=== PATIENT | male | born 1955 | race Caucasian/White ===

== ENCOUNTER 2024-01-12 05:38 | Observation (INO) | payer OTHER, SELFPAY ==
[2024-01-11 22:52] VITALS: BP 113/78; BMI 39.7
[2024-01-11 23:00] VITALS: BP 124/69
[2024-01-11 23:10] LABS: % Basophils 0.9 % (0-2); % Eosinophils 2.1 % (0-6); % Immature Granulocytes 0.4 % (0-0.5); % Lymphocytes 32.9 % (20.5-51.1); % Monocytes 8.9 % (1.7-9.3); % Neutrophils 54.8 % (42.2-75.2); Absolute Basophils 0.1 10^3/uL (0-0.2); Absolute Eosinophils 0.2 10^3/uL (0-0.7); Absolute Monocytes 0.8 10^3/uL (0.1-0.6); Hematocrit 41.9 % (39.0-52.0); Hemoglobin 14.1 g/dL (13.0-18.0); Mean Corp Hgb Conc. 33.7 g/dL (33.0-37.0); Mean Corpuscular Hgb 30.1 pg (27.0-31.0); Mean Corpuscular Volume 89.5 fL (80.0-94.0); Nucleated Red Blood Cells % 0 % (-); Platelet Count 149 10^3/uL (130-400); Red Blood Cell Count 4.68 10^6/uL (4.70-6.10); Red Cell Dist. Width 13.6 % (11.5-14.5); White Blood Cell Count 9.1 10^3/uL (4.8-10.8)
[2024-01-11 23:27] LABS: ALT (SGPT) 20 U/L (0-50); AST (SGOT) 23 U/L (17-59); Albumin 4.6 g/dl (3.5-5.0); Alkaline Phosphatase 52 U/L (38-126); Blood Urea Nitrogen 25 mg/dl (9-20); Calcium 8.9 mg/dl (8.4-10.2); Carbon Dioxide 24 mmol/L (22-30); Chloride 102 mmol/L (98-107); Estimated Creatinine Clearance 79 ml/min; Glucose 171 mg/dl (70-99); Potassium 3.8 mmol/L (3.5-5.1); Sodium 136 mmol/L (135-145); Total Bilirubin 1.6 mg/dl (0.2-1.3); eGFR > 60.00
[2024-01-11 23:36] LABS: Troponin I < 0.012 ng/ml
[2024-01-12] VITALS (18 sets, daily range): BP systolic 96–135; BP diastolic 55–82; PULSE 53–61; BMI 38.7
[2024-01-12] MEDS: NSS 1000 IV (02:52)
--- NOTE | 2024-01-12 02:56 | ED.GENMED ---
History of Present Illness
General
Chief Complaint: Fainting/Passed Out
Source: patient
Exam Limitations: none
Time Seen by Provider: 01/12/24 02:21
History of Present Illness
History of Present Illness:
This is a 68 year old male that comes in by ambulance with c/o syncope. States that he was playing cigar poker and it was around 10 pm when he was going to leave. States that he went to the Desk to sign out and he felt dizzy. States that the next
think he knew he was on the floor. States that he went to get up and he passed out again. States that the life sciences manager called 911 and a police office and EMS came. States that he felt better and they got him up in a chair. States that he was sitting in
the chair and they said that his heart rate started to go down and he passed out again. States that they paced him and patient was also given Atropine. States that he has had a cough and earlier he did feel dizzy. States that he feels good now.
Denies any fever, chills, chest pain, SOB, abd pain, nausea, vomiting, diarrhea, headache, urinary burning.
Past History
Past History
ED Past Medical History: Hypercholesterolemia and Other (Syncope)
ED Past Surgical History: Cholecystectomy and Orthopedic (Meniscus repair, Left total knee replacement)
Social History
Tobacco: Other (Cigars)
Alcohol: Occasional
Personal:
Living: with family
Review of Systems
Review of Systems
All Other Systems: ROS reviewed and negative except as documented in HPI and ROS
Constitutional: Reports no symptoms; Denies fever or chills
EENT: Reports no symptoms
Respiratory: Reports cough; Denies trouble breathing
Cardiac: Reports no symptoms; Denies chest pain
ABD/GI: Reports no symptoms; Denies abdominal pain, nausea, vomiting or diarrhea
: Reports no symptoms; Denies dysuria, frequency or urgency
Musculoskeletal: Reports no symptoms
Skin: Reports no symptoms
Neurological: Reports dizzy; Denies headache
Psychiatric: Reports no symptoms
Phy Exam
General Physical Exam
General Presentation: well appearing and no apparent distress
General age: appears stated age
General Skin: warm and dry
General Habitus: normal
General Mental: alert
General Hydration: appears well hydrated
ENT Exam
ENT Exam: TM's normal, pharynx normal and neck supple
Eye Exam
Eye Exam: EOMI
Cardiovascular Exam
Cardiovascular Exam: regular rate/rhythm, no edema, no murmur and normal peripheral pulses
Pulmonary Exam
Pulmonary Exam: lungs clear, no respiratory distress, no rales, chest non tender, no crackles, no rhonchi, no wheezing and no cough
Gastrointestinal Exam
Gastrointestinal Exam: normal bowel sounds, non tender, soft, no organomegaly, no pulsatile mass and non distended
Musculoskeletal Exam
Musculoskeletal Exam: full ROM and no edema
Skin Exam
Skin Exam: normal color, warm/dry, no rash and no petechia
Psychiatric Exam
Psychiatric Exam: normal mood/affect
Course
Orders/Labs/Results
Orders:
Orders
01/11/24 22:51
Electrocardiogram (*1) Urgent
Reason for Study: Chest Pain
Cardiac Monitoring- Treatment ONCE
EKG- Treatment ONCE
IV Insert/Care/Rem.- Treatment PRN
O2 Therapy [RESP] Urgent
Titrate/Wean O2 to maintain O2 sat greater than (%): 90
Special Instructions: Maintain sats >/=90%
Pulse Ox/spot Check [RESP] Urgent
Quantity: 1
Special Instructions: ON ROOM AIR
01/11/24 23:01
Complete Blood Count/With Diff Urgent
Comprehensive Metabolic Panel Urgent
Troponin I Urgent
01/12/24 02:51
0.9% Sodium Chloride 1000 ml [Nss] 1,000 ml IV BOLUS
01/12/24 02:55
Orthostatic VS- Treatment ONCE
0.9% Sodium Chloride 1000 ml [Nss] 1,000 ml IV BOLUS
CR Chest - 2 Views Urgent
Comment:
Reason For Exam: sYNCOPE, cOUGH
01/12/24 03:01
Troponin I Urgent
Abnormal Lab Results
01/11/24
23:01
RBC 4.68 L 10^6/uL
(4.70-6.10)
Absolute Monos (auto) 0.8 H 10^3/uL
(0.1-0.6)
BUN 25 H mg/dl
(9-20)
Glucose 171 H mg/dl
(70-99)
Total Bilirubin 1.6 H mg/dl
(0.2-1.3)
01/11/24 23:01
01/11/24 23:01
Dehydration. Hyperglycemia. Total raul elevation. Troponin <0.012
Second Troponin <0.012
Vital Signs
Initial and Last Documented VS:
Initial Vital Signs
Temp Pulse Resp BP Pulse Ox
97.7 F 72 16 113/78 93
01/11/24 22:52 01/11/24 22:52 01/11/24 22:52 01/11/24 22:52 01/11/24 22:52
Last Documented Vital Signs
Temp Pulse Resp BP Pulse Ox
97.7 F 59 18 125/73 97
01/11/24 22:52 01/12/24 03:00 01/12/24 03:00 01/12/24 03:00 01/12/24 03:00
MDM/Problems Addressed
Differential Diagnosis Includes:
Syncope, Cardiac arrhythmia.
MDM/Problems Addressed:
This is a 68 year old male that comes in with by ambulance with c/o syncope. Patient states that he passed out 3 times and was told that his heart rate went down into the 20's. Patient was also given Atropine by EMS.
Explained to patient that his blood work shows that he is dehydrated. Will give IV fluids, and admit patient. Hospitalist notified
Chronic conditions affecting care:
Syncope
Acute Exacerbation and/or Progression of Chronic Illness:
Syncope
*Radiology
Radiology exam reviewed: preliminary read by ED provider (Chest Negative for active disease. )
*Pulse Oximetry
Patient hypoxic: no
*EKG
Interpreted by ED Provider?: Yes
Heart Rate: 70
Rate: normal
Rhythm: sinus
[place]: left axis deviation
Interval: normal interval
QRS Pattern: normal QRS
Ischemia: no ischemia
*Retail Coverage Merchandiser Interpretation
Rate: normal
Heart Rate: 78
Rhythm: sinus
*Critical Care Note
Total Time (30-74mins, 75-104mins- exclusive of procedures): Not Applicable
ED Attending Note
-
Portions of this chart may have been created with voice recognition software.� Occasional wrong word or��sound alike� substitutions may have occurred due to the inherent limitations of voice recognition software.
Discharge Plan
Departure
Patient Disposition: Admit
Date of Disposition: 01/12/24
Time of Disposition: 03:49
Admit to: Telemetry
Presentation/result/management discussed w/ accepting MD/DO: Hospitalist
Patient with high blood pressure during this ER visit?: No
Condition: Good
Covid-19: Not Applicable
Discharge Problem:
Syncope and collapse
Referrals:
Christelle Dyson MD [Family Provider] -
Interventions
Interventions:
*Risk Screen - Suicide Last Done: 01/11/24 22:52
*General Assessment Last Done: 01/11/24 22:52
*Neglect/Abuse Screening Last Done: 01/11/24 22:52
*ED COVID-19 Vaccine History Last Done: 01/11/24 22:52
ED- Cardiac Assessment Last Done: 01/11/24 23:09
ED- Neurological Assessment Last Done: 01/11/24 23:09
Discharge Date and Time
Print Language: MALTESE
[2024-01-12 03:33] LABS: Troponin I < 0.012 ng/ml
--- NOTE | 2024-01-12 04:37 | HPS.HSE ---
Family Physician
-
Family Physician: Christelle Dyson MD
Chief Complaint
-
syncopal episode
History of Present Illness
This is a 68-year-old male who is generally healthy has only known history of MARLYN noncompliant with CPAP presents to the emergency department following a witnessed syncopal episode at a cigar shop.
Patient had been in usual state of health up until event. He had no antecedent symptoms whatsoever. He does report past episodes of fainting spells that he associated with dehydration (2 episodes over a 10-year period). Patient reported that he
was about to walk out of the shop when he suddenly felt dizzy and lightheaded and lowered himself to the floor. When he tried to get up he again felt very weak and fell to the floor and was noted to be slightly unresponsive. EMS was immediately
called. Upon the arrival the patient was awake and talking but when monitored it was found to develop bradycardia to as low as the 30s. He was transiently paced and given a dose of atropine en route to the emergency department.
In the ED the patient right with a blood pressure in the 110s over 68 and pulse of 61 satting 97% on room air. ECG showed normal sinus rhythm without any interval delays or QT abnormality. Troponin was negative at 0.012. CBC was unremarkable.
Electrolytes were also all within normal limits.
Medical History
Past Medical History
Past Medical History: Reports Other
Additional Past Medical History:
MARLYN not on CPAP
Obesity
Past Surgical History: Reports Cholecystectomy and Orthopedic (Right total knee arthroplasty)
Social History
Tobacco: Smoker
Alcohol: None
Drug: None
Personal:
Living: With Family
Employment: Employed
Family History
Family History: Diabetes
Allergies / Home Medications
Allergies reflects when Allergies were last updated in [facility].
Home Medications with original date entered in [employer]
Allergy/Medication List:
Allergies
Allergy/AdvReac Type Severity Reaction Status Date / Time
amoxicillin Allergy Unknown Unknown Verified 01/11/24 22:51
Home Medications
No Meds [No Current Medications] 01/12/24
Review of Systems
-
History Source: Patient
Constitutional: Reports No Symptoms
EENT: Reports No Symptoms
Respiratory: Reports No Symptoms
Cardiac: Reports No Symptoms
Abdomen/GI: Reports No Symptoms
: Reports No Symptoms
Musculoskeletal: Reports No Symptoms
Skin: Reports No Symptoms
Neurological: Reports No Symptoms
Endocrine: Reports No Symptoms
Hematologic/Lymphatic: Reports No Symptoms
Psych: Reports No Symptoms
Physical Exam
Vital Signs
Vital Signs
Temp Pulse Resp BP Pulse Ox
97.7 F 61 12 117/68 96
01/11/24 22:52 01/12/24 04:00 01/12/24 04:00 01/12/24 04:00 01/12/24 03:15
Physical Exam
General: Well Developed, Well Nourished, No Apparent Distress and Comfortable
HEENT: NormoCephalic, Anicteric, Moist mucous membranes and Atraumatic
Respiratory: Clear
Cardiac: S1/S2 and Regular Rhythm
GI: Soft, Non Tender, Non Distended and Normal Bowel Sounds
Rectal: Deferred by Provider
Genito-urinary: Deferred by me
Musculoskeletal: No Clubbing, No Cyanosis and No Edema
Skin: Warm
Neuro: AO x 3
Hematologic/Lymphatic: No Lymphadenopathy
Psych: Calm
Laboratory Results
-
01/11/24 23:01
01/11/24 23:01
Laboratory Results
Total Bilirubin 1.6 mg/dl (0.2-1.3) H 01/11/24 23:01
AST 23 U/L (17-59) 01/11/24 23:01
ALT 20 U/L (0-50) 12/06/24 23:01
Alkaline Phosphatase 52 U/L (38-126) 01/11/24 23:01
Troponin I < 0.012 ng/ml 01/12/24 03:01
Data Reviewed
-
Diagnostic Radiology: Image Personally Visualized and interpreted
Medical Tests (Nuc Med, Echo, EKG etc): Image Personally Visualized and interpreted
Lab Data: Labs Reviewed by me
Old Records: Reviewed
Impression/Plan
-
IMPRESSION:
Patient with syncopal episode, by EMS records he was found to have had a transient bradycardia to as low as 30s requiring atropine. ED evaluation shows normal sinus rhythm, no ischemic changes on ECG and troponin is negative. No interval
abnormalities. The electrolytes BUN/creatinine were all within normal limits. CBC was unremarkable. Hemodynamically stable and in no acute distress. Suspect cardiogenic syncopal episode given history but no specific explanation for the
bradycardia. Patient not on any medications no history of ingestions, no cardiac history.
PLAN:
1. Syncopal episode suspect related to transient bradycardia without ischemia.
- admit to ivu
- cycle cardiac enzymes
- echo
- check tsh and bnp
- may need ppm or cont amb monitoring so cardiology consultation
- no chest pain, sob, hypotension to suggest pe
- no evidence of dehydration, check orthostatic
- no heart block on ecg, unlikely lyme disease
- atropine 0.5 iv prn, then epi if needed.
2. MARLYN
- not on cpap, oxygen prn
DVT PPX - Lovenox SQ
Code Status - Full Code
--- NOTE | 2024-01-12 09:41 | W.PN.HOSP.TC ---
Today's Communication/Plan
-
cardiology consult
Assessment / Plan
Assessment / Plan
Physical Exam
General: Well Developed, Well Nourished, No Apparent Distress and Comfortable
HEENT: NormoCephalic, Anicteric, Moist mucous membranes and Atraumatic
Respiratory: Clear
Cardiac: S1/S2 and Regular Rhythm
GI: Soft, Non Tender, Non Distended and Normal Bowel Sounds
Rectal: Deferred by Provider
Genito-urinary: Deferred by me
Musculoskeletal: No Clubbing, No Cyanosis and No Edema
Skin: Warm
Neuro: AO x 3
Hematologic/Lymphatic: No Lymphadenopathy
Psych: Calm
A/P:
1. Syncopal episode suspect related to transient bradycardia without ischemia.
- admitted to ivu
- cycle cardiac enzymes
- echo
- check tsh and bnp
- may need ppm or cont amb monitoring so cardiology consultation
- no chest pain, sob, hypotension to suggest pe
- no evidence of dehydration, check orthostatic
- no heart block on ecg, unlikely lyme disease
- atropine 0.5 iv prn, then epi if needed.
- Awaiting cardiology consult
- D/C when cleared by cardio
2. MARLYN
- not on cpap, oxygen prn
DVT PPX - Lovenox SQ
Code Status - Full Code
Anticipated Discharge: 24 - 48 hours
Subjective/Interval History
-
Date of Service: January 12, 2024
Patient currently feels well, no cp/sob/syncope
Objective Data
-
Labs:
Laboratory Results
01/11/24
23:01
WBC 9.1
Hgb 14.1
Hct 41.9
Plt Count 149
Sodium 136
Potassium 3.8
Chloride 102
Carbon Dioxide 24
BUN 25 H
Creatinine 1.1
Glucose 171 H
Calcium 8.9
Total Bilirubin 1.6 H
AST 23
ALT 20
Alkaline Phosphatase 52
Vital Signs:
Vital Signs
Temp Pulse Resp BP Pulse Ox
97.7 F 53 23 102/65 96
01/11/24 22:52 01/12/24 09:00 01/12/24 09:00 01/12/24 09:00 01/12/24 03:15
I&O
01/11/24 01/12/24 01/13/24
06:59 06:59 06:59
Output Total 475 / 475
Balance -475 / -475
[2024-01-12 11:47] LABS: NT-proBNP 30.1 pg/ml; Troponin I < 0.012 ng/ml
[2024-01-12 12:27] LABS: TSH Reflex To Free T4 1.23 uIU/ml (0.47-4.68)
--- NOTE | 2024-01-12 13:47 | PTCARENOTE ---
Patient admitted to IVU. He is AO x3, denies pain or shortness of breath. SR with 1st degree HB in the 70's, BP 110/55. Patient in chair, at bedside
--- NOTE | 2024-01-12 18:31 | PTCARENOTE ---
Patient walking in the hallway. Denies lightheadedness. VSS, NSR HR in the 70's
--- NOTE | 2024-01-12 20:49 | PTCARENOTE ---
Received patient at change of shift. Patient sitting in chair, awake, alert, and oriented. BP 122/63, NSR with first degree 70s-80s, 97% on room air. Denies feeling dizzy, lightheaded. Discussed plan of care. Patient verbalized understanding. Call
casas within reach.
[2024-01-13] VITALS (7 sets, daily range): BP systolic 100–147; BP diastolic 53–81
[2024-01-13 04:09] LABS: Hematocrit 39.8 % (39.0-52.0); Hemoglobin 13.1 g/dL (13.0-18.0); Mean Corp Hgb Conc. 32.9 g/dL (33.0-37.0); Mean Corpuscular Hgb 29.5 pg (27.0-31.0); Mean Corpuscular Volume 89.6 fL (80.0-94.0); Mean Platelet Volume 10.1 fL (7.4-10.4); Platelet Count 144 10^3/uL (130-400); Red Blood Cell Count 4.44 10^6/uL (4.70-6.10); Red Cell Dist. Width 13.8 % (11.5-14.5); White Blood Cell Count 6.6 10^3/uL (4.8-10.8)
[2024-01-13 04:22] LABS: Blood Urea Nitrogen 21 mg/dl (9-20); Calcium 8.9 mg/dl (8.4-10.2); Carbon Dioxide 28 mmol/L (22-30); Chloride 106 mmol/L (98-107); Estimated Creatinine Clearance 86 ml/min; Glucose 144 mg/dl (70-99); Potassium 4.2 mmol/L (3.5-5.1); Sodium 141 mmol/L (135-145); eGFR > 60.00
[2024-01-13 04:29] LABS: Troponin I < 0.012 ng/ml
--- NOTE | 2024-01-13 08:50 | PTCARENOTE ---
Patient ambulating in halls this morning, denies lightheadedness or chest pain. VSS, call casas in reach
--- NOTE | 2024-01-13 11:14 | W.PN.HOSP.TC ---
Today's Communication/Plan
-
Plan for stress test and echocardiogram.
Assessment / Plan
Assessment / Plan
Physical Exam
General: Well Developed, Well Nourished, No Apparent Distress and Comfortable
HEENT: NormoCephalic, Anicteric, Moist mucous membranes and Atraumatic
Respiratory: Clear
Cardiac: S1/S2 and Regular Rhythm, bradycardia rate
GI: Soft, Non Tender, Non Distended and Normal Bowel Sounds
Rectal: Deferred by Provider
Genito-urinary: Deferred by me
Musculoskeletal: No Clubbing, No Cyanosis and No Edema
Skin: Warm
Neuro: AO x 3
Hematologic/Lymphatic: No Lymphadenopathy
Psych: Calm
A/P:
Syncope and sinus bradycardia:
Unclear etiology but concerns that this could be sick sinus syndrome/bradycardia or other arrhythmia related versus vasovagal.
Transiently paced and atropine given by EMS
Plan for echocardiogram
Plan for exercise stress test tomorrow to look for chronotropic insufficiency
Continue cardiac monitoring
Cardiology consult appreciated
Might need long-term heart monitor if does not meet criteria for pacemaker but will reevaluate
MARLYN:
Needs outpatient reevaluation for sleep testing
Obesity:
Lifestyle changes modification
DVT prophylaxis:
Lovenox SQ
CODE STATUS:
Full code
Anticipated Discharge: 24 - 48 hours
Subjective/Interval History
-
Date of Service: January 13, 2024
Patient denies any lightheadedness chest pain or shortness of breath today. He is bradycardic on telemetry in the 50's but reports no symptoms today. Afebrile
Objective Data
-
Labs:
Laboratory Results
01/13/24
03:07
WBC 6.6
Hgb 13.1
Hct 39.8
Plt Count 144
Sodium 141
Potassium 4.2
Chloride 106
Carbon Dioxide 28
BUN 21 H
Creatinine 1.0
Glucose 144 H
Calcium 8.9
Vital Signs:
Vital Signs
Temp Pulse Resp BP Pulse Ox
98.3 F 54 20 142/66 98
01/13/24 07:33 01/13/24 06:30 01/13/24 07:33 01/13/24 02:54 01/13/24 07:33
I&O
01/12/24 01/13/24 01/14/24
06:59 06:59 06:59
Intake Total 1400 / 1400
Output Total 475 / 475
Balance -475 / -475 1400 / 1400
--- NOTE | 2024-01-13 14:04 | CON.CAR ---
Consultation
Consultation Request
Date/Time Consultation Requested: 01/13/2024
Date/Time Consultation Performed: 01/13/2024
Reason for Consultation: Syncope
Medical History
-
Chief Complaint: Syncope
History of Present Illness:
68-year-old male who is generally healthy has only known history of MARLYN noncompliant with CPAP presents to the emergency department following a witnessed syncopal episode at a cigar shop.
Patient had been in usual state of health up until event. He had no antecedent symptoms whatsoever. He does report past episodes of fainting spells that he associated with dehydration (2 episodes over a 10-year period). Patient reported that he
was about to walk out of the shop when he suddenly felt dizzy and lightheaded and lowered himself to the floor. When he tried to get up he again felt very weak and fell to the floor and was noted to be slightly unresponsive. EMS was immediately
called. Upon the arrival the patient was awake and talking but when monitored it was found to develop bradycardia to as low as the 30s. He was transiently paced and given a dose of atropine en route to the emergency department.
In the ED the patient right with a blood pressure in the 110s over 68 and pulse of 61 satting 97% on room air. ECG showed normal sinus rhythm without any interval delays or QT abnormality. Troponin was negative at 0.012. CBC was unremarkable.
Electrolytes were also all within normal limits.
Patient has had 2 episodes of syncope previous to this. Previously he was thought to have vasovagal episode.
No history of atrial fibrillation. He is known to have obstructive sleep apnea�nontreated.
Past Medical History
Past Medical History: Other (Obstructive sleep apnea not on CPAP., Obesity)
Past Surgical History: Orthopedic (Right total knee arthroplasty)
Social History
Tobacco: Smoker
Alcohol: None
Drug: None
Personal:
Living: With Family
Employment: Employed
Family History
Family History: Reviewed & Not Pertinent
Allergies / Home Medications
Allergy/AdvReac Type Severity Reaction Status Date / Time
amoxicillin Allergy Unknown Unknown Verified 01/12/24 13:34
�Medication �Instructions �Recorded �Confirmed �Type
No Meds [No Current Medications] 01/12/24 01/12/24 History
Review of Systems
-
All other systems: Negative unless noted
Physical Exam
Vital Signs
Temp Pulse Resp BP Pulse Ox
98.6 F 54 16 105/53 98
01/13/24 13:29 01/13/24 13:24 01/13/24 13:29 01/13/24 13:24 01/13/24 13:29
Lab Results
01/13/24 03:07
01/13/24 03:07
Troponin I < 0.012 ng/ml 01/13/24 03:07
Rks-R-Hqpyhzgiyfh Pept 30.1 pg/ml 01/12/24 11:05
Physical Exam
General: Well Developed, Well Nourished and No Apparent Distress
HEENT: Normocephalic, Anicteric and Moist Mucous Membranes
Respiratory: Clear and Non Labored Respirations; Negative Rhonchi
Cardiac: S1/S2 and Regular Rhythm; Negative Peripheral Edema
GI: Soft, Non Tender, Non Distended and Normal Bowel Sounds
Musculoskeletal: No Clubbing, No Cyanosis and No Edema
Skin: Warm and Dry
Neuro: Awake, Alert, Oriented and AO x 3
Psych: Calm
Impression / Plan
-
68-year-old gentleman with no significant past medical history with history of obstructive sleep apnea, noncompliant with CPAP with witnessed syncope and noted to have severe bradycardia in 30s, responded to atropine
Syncope
-Unclear etiology
-Telemetry so far has been showing normal sinus rhythm without any significant pauses.
-Paramedics noted to have severe bradycardia at the time of arrival to the scene.
-Patient does have bradycardia on telemetry but is asymptomatic.
-Ambulating without any symptoms.
-Will proceed with echo
-Will obtain exercise stress test to look for chronotropic insufficiency
-If patient is able to generate adequate heart rate with exercise, pacemaker may not be needed.
-The episode of syncope/presyncope x 2 associated with bradycardia could still be related to vasovagal especially with no obvious medical condition involved.
-The possibility of atrial fibrillation and conversion pause is also entertained especially with his untreated MARLYN.
-He would benefit from long-term monitoring that can be done using his own home devices like [email or web address] or [employer] versus short duration of M cot monitor
Data Reviewed
-
EKG: Tracing Personally Visualized and interpreted and Report Reviewed by me
Radiology: Report Reviewed by me
Labs: Labs Reviewed by me
Old Records: Reviewed
--- NOTE | 2024-01-13 20:52 | PTCARENOTE ---
Received patient at change of shift. Patient ambulating the halls. No c/o SOB or dizziness. BP 125/78, NSR 60s-70s, 98% on room air. Discussed being NPO @ midnight for stress test tomorrow. Patient verbalized understanding. Call casas within reach.
[2024-01-14 04:39] VITALS: BP 125/67
[2024-01-14 05:00] LABS: Hematocrit 38.8 % (39.0-52.0); Hemoglobin 12.8 g/dL (13.0-18.0); Mean Corp Hgb Conc. 32.9 g/dL (33.0-37.0); Mean Corpuscular Hgb 29.5 pg (27.0-31.0); Mean Corpuscular Volume 89.6 fL (80.0-94.0); Mean Platelet Volume 9.5 fL (7.4-10.4); Platelet Count 124 10^3/uL (130-400); Red Blood Cell Count 4.34 10^6/uL (4.70-6.10); Red Cell Dist. Width 13.7 % (11.5-14.5); White Blood Cell Count 6.5 10^3/uL (4.8-10.8)
[2024-01-14 05:18] LABS: Blood Urea Nitrogen 18 mg/dl (9-20); Calcium 9.2 mg/dl (8.4-10.2); Carbon Dioxide 27 mmol/L (22-30); Chloride 107 mmol/L (98-107); Estimated Creatinine Clearance 95 ml/min; Glucose 122 mg/dl (70-99); Potassium 4.6 mmol/L (3.5-5.1); Sodium 139 mmol/L (135-145); eGFR > 60.00
--- NOTE | 2024-01-14 08:15 | PTCARENOTE ---
Assumed care of pt from prev nsg shift. Pt AAOx3 w/no c/o CP or SOB. Pt anxiously awaiting his sched ECHO & Stress test today. Pt keeps stating 'he's in skilled nursing here'. Pt's VS stable w/HR in the 50's-60's & BP 135/64 this AM. Pt is SB/SR on telemetry
monitoring. Plan of care ongoing.
--- NOTE | 2024-01-14 08:32 | W.PN.CD ---
Addendum entered and electronically signed by Willi Penaloza MD 01/14/24 15:49:
Echocardiogram was normal. Exercise treadmill test showed no ischemia at submaximal heart rate. Patient is safe to be discharged from a cardiology perspective. Our office will send him a 30-day monitor and he will follow-up in clinic with .
Gerber on March 14, 2024.
Original Note:
Today's Communication / Plan
-
ETT and echo
dispo pending results
Impression / Plan
-
68-year-old gentleman with history of obstructive sleep apnea, noncompliant with CPAP with witnessed syncope and noted to have severe bradycardia in 30s, responded to atropine
Syncope
-Unclear etiology
-Telemetry so far has been showing sinus rhythm and mild sinus lm without any significant pauses.
-Paramedics noted to have severe bradycardia at the time of arrival to the scene.
-Patient does have bradycardia on telemetry but is asymptomatic.
-Ambulating without any symptoms here
-Will proceed with echo
-Will obtain exercise stress test to look for chronotropic insufficiency
-If patient is able to generate adequate heart rate with exercise, pacemaker may not be needed.
-The episode of syncope/presyncope x 2 associated with bradycardia could still be related to vasovagal especially with no obvious medical condition involved.
-The possibility of atrial fibrillation and conversion pause is also entertained especially with his untreated MARLYN.
-if testing is normal here, will arrange for 2 weeks monitor as outpatient
MARLYN
-encouraged compliance with CPAP
Physical Exam
Vital Signs/Labs
Vital Signs
Temp Pulse Resp BP Pulse Ox
98.6 F 57 16 125/67 98
01/14/24 04:52 01/14/24 04:39 01/14/24 04:52 01/14/24 04:39 01/14/24 04:52
01/13/24 01/14/24 01/15/24
06:59 06:59 06:59
Actual Weight 112.1 kg
01/14/24 04:47
01/14/24 04:47
01/12/24
11:05
Ucm-S-Nywawzebpne Pept 30.1
LAB Results
01/11/24 01/12/24 01/12/24
23:01 03:01 11:05
Troponin I < 0.012 < 0.012 < 0.012
01/12/24 01/12/24 01/13/24
16:23 22:23 03:07
Troponin I Cancelled Cancelled < 0.012
Physical Exam
Constitutional: No acute distress and Comfortable
EENT: Moist mucous membranes
Cardiovascular: Rhythm & rate is regular, Pedal edema is absent, JVD pressure is normal and Systolic murmur absent
Respiratory: Respiratory effort normal and Lungs clear to auscul.
GI: Soft and Distention absent
Neuro/Psych: AO x 3
Data Reviewed
-
Date of Service: January 14, 2024
EKG: Other (Tele: SR/SB 50s-60s)
Labs: Labs Reviewed by me
[2024-01-14 08:50] VITALS: BP 135/64
--- NOTE | 2024-01-14 11:20 | PTCARENOTE ---
Pt back from ECHO & Stress test; No CP or SOB. Pt anxiously awaiting being allowed to eat; this RN reiterated need for waiting until the fruit and vegetable inspector reads his reports before eating anything. Pt verbalized his understanding.
[2024-01-14 11:28] VITALS: BP 125/63
--- NOTE | 2024-01-14 14:22 | CM ---
Reviewed chart. Met with and Mrs. Umana to review discharge plans. He states prior to admission he resides with his spouse in a two story home. He states he has a full flight of steps to get to bedroom/full bathroom. He states he has a
powder room on the first floor. He states prior to admission he was independent with ambulation and adls. He states he does not have any DME in the home. He states he has a prescription plan and uses [facility]. The discharge plan is to return
home with his spouse when medically stable.
[2024-01-14 16:09] VITALS: BP 129/66
--- NOTE | 2024-01-14 16:10 | W.PN.HOSP.TC ---
Today's Communication/Plan
-
dc to home
Assessment / Plan
Assessment / Plan
Syncope and sinus bradycardia:
Unclear etiology but concerns that this could be sick sinus syndrome/bradycardia or other arrhythmia related versus vasovagal.
Transiently paced and atropine given by EMS
Plan for echocardiogram
Plan for exercise stress test tomorrow to look for chronotropic insufficiency
Continue cardiac monitoring
Cardiology consult appreciated
Might need long-term heart monitor if does not meet criteria for pacemaker but will reevaluate
MARLYN:
Needs outpatient reevaluation for sleep testing
Obesity:
Lifestyle changes modification
DVT prophylaxis:
Lovenox SQ
Pt cleared by cardio to be dc, will dc now
See dictated note
CODE STATUS:
Full code
Anticipated Discharge: Today
Subjective/Interval History
-
Date of Service: January 14, 2024
Feels well, cleared by cardio to be dc and pt anxiously awaiting dc
Objective Data
-
Labs:
Laboratory Results
01/14/24
04:47
WBC 6.5
Hgb 12.8 L
Hct 38.8 L
Plt Count 124 L
Sodium 139
Potassium 4.6
Chloride 107
Carbon Dioxide 27
BUN 18
Creatinine 0.9
Glucose 122 H
Calcium 9.2
Vital Signs:
Vital Signs
Temp Pulse Resp BP Pulse Ox
98.2 F 67 18 125/63 98
01/14/24 11:25 01/14/24 12:00 01/14/24 11:25 01/14/24 11:28 01/14/24 11:25
I&O
01/13/24 01/14/24 01/15/24
06:59 06:59 06:59
Intake Total 1400 / 1400 960 / 960
Balance 1400 / 1400 960 / 960
Review of Systems
-
History Source: Patient, Family ( at bedside) and Physician
Constitutional: Reports No Symptoms
EENT: Reports No Symptoms Reported
Respiratory: Reports No Symptoms
Cardiac: Reports No Symptoms
Abdomen/GI: Reports No Symptoms
Genitourinary: Reports No Symptoms
Musculoskeletal: Reports No Symptoms
Neuro: Reports No Symptoms
Physical Exam
-
General: Well Developed, Well Nourished and No Apparent Distress
HEENT: Normocephalic, Atraumatic and Moist Mucous Membranes
Respiratory: Clear to Auscultation; Negative Wheezes, Rales or Rhonchi
Cardiac: Regular Rhythm and S1/S2
GI: Soft, Nontender and Nondistended
Musculoskeletal: No Clubbing, No Cyanosis and No Edema
--- NOTE | 2024-01-14 16:13 | W.DS.TRANS ---
DC Summary - Logistic Specialist
-
Discharge Instructions:
Discharge Diagnosis/Procedures Syncope
Sinus bradycardia
Diet Low Cholesterol
Activity As tolerated
Blood Work PCP to order CBC & BMP within one week.
Others Tests The cardiology office is arranging an outpatient
english lecturer for you (30 day monitor per
Gerber). This will be mailed to your home with
instructions.
Instructions:
Stand-Alone Forms:
Changes to Home Medications: No
Discharge Medications:
DC Medications w/original date entered in [employer]
No Meds [No Current Medications] 01/12/24
Home Medication Changes
Pending Results: No
--- NOTE | 2024-01-14 18:02 | PTCARENOTE ---
Discussed D/C instructions w/pt & spouse. Pt's IV line & case monitor D/C'd. Pt ambulated out w/pt's spouse providing transportation.
== END 2024-01-14 17:42 | disposition home or self-care (01) ==
LOC: IVU 05:38
PROVIDERS: Clinical Nurse Specialist Family Health; Emergency Medicine; Hospitalist; ADMITTING PHYSICIAN Internal Medicine; ATTENDING PHYSICIAN Internal Medicine; CONSULT PHYSICIAN Internal Medicine Cardiovascular Disease; EMERGENCY PHYSICIAN Emergency Medicine; FAMILY PHYSICIAN Family Medicine
DX: R55 Syncope and collapse (principal); R42 Dizziness and giddiness; R05.9 Cough, unspecified; F17.290 Nicotine dependence, other tobacco product, uncomplicated; E78.00 Pure hypercholesterolemia, unspecified; E86.0 Dehydration; R73.9 Hyperglycemia, unspecified; I51.7 Cardiomegaly; R07.9 Chest pain, unspecified; G47.33 Obstructive sleep apnea (adult) (pediatric); R00.1 Bradycardia, unspecified; R53.1 Weakness; Z91.199 Patient's noncompliance with other medical treatment and regimen due to unspecified reason; Z90.49 Acquired absence of other specified parts of digestive tract; Z96.652 Presence of left artificial knee joint; E66.9 Obesity, unspecified; Z68.38 Body mass index [BMI] 38.0-38.9, adult; Z83.3 Family history of diabetes mellitus; Z88.0 Allergy status to penicillin
CPT/HCPCS: 93017; 71046; 80048; 80053; 83880; 84443; 84484; 85025; 85027; 93005; 93306; 94760; 96360; 99285; G0378

== ENCOUNTER 2024-10-02 09:56 | Day surgery (SDC) | payer OTHER, SELFPAY ==
[2024-10-02] VITALS (15 sets, daily range): BP systolic 118–166; BP diastolic 64–100; BMI 38.2
[2024-10-02 13:57] LABS: ACT-LR - POC 319 Seconds (116-155)
[2024-10-02] MEDS: NSS 1000 IV (15:14)
--- NOTE | 2024-10-02 17:35 | ITS.CL.PN ---
Addendum entered and electronically signed by Donta Bell MD 10/02/24 18:06:
CORONARY ANGIOGRAPHY
Dominance: Right
LM: Large with mild disease
LAD: Large vessel giving rise to moderate caliber D1, moderate caliber D2, small D3, and wrapping around the apex. There is an eccentric focal 60-70% stenosis in the proximal LAD and otherwise mild disease elsewhere.
LCx: Large vessel giving rise to a small OM1, large OM2, small OM3, and moderate caliber LPL branch. There is a 50% focal ostial stenosis and otherwise mild diffuse disease.
RCA: Moderate caliber vessel giving rise to an RPDA and 3 RPL branches. There is a 95% calcified mid vessel stenosis and there appears to be severe disease as well in the proximal RPDA as well as the RPAV leading into the RPL branches, however, due
to JOSÉ II flow in the branch vessels, the severity of stenoses cannot be precisely determined. There is noted to be fjov-ud-[id number] retrograde filling of both the RPDA (from LAD septal collaterals) and RPL branches (from distal circumflex
collaterals).
Original Note:
Roading Engineer - Procedure Note
Procedure
Procedure Note:
CARDIAC CATHETERIZATION REPORT
Date of Procedure: 10/02/2024
Referring: Dr. Kayla Mayes MD
Indication: severely elevated coronary artery calcium score
PROCEDURE(S)
1. left heart catheterization
2. coronary angiography
3. iFR LAD
4. iFR LCx
ACCESS: 6F right radial artery (closure: radial band)
CATHETERS
1. 6F JR4
2. 6F JL4
3. 6F EBU3.75
MODERATE SEDATION: 25 minutes of moderate sedation was utilized. An independent medical record administrator was present to assist with and help manage the patient's level of consciousness and physiologic status.
HEMODYNAMIC DATA
LV 131/16 (EDP 20, a-wave to 25) mmHg
AO 134/64 (mean 89) mmHg
CORONARY ANGIOGRAPHY
Dominance: Right
LM: Large with mild disease
LAD: Large vessel giving rise to moderate caliber D1, moderate caliber D2, small D3, and wrapping around the apex.
LCx: Large vessel giving rise to a small OM1, large OM2, small OM3, and moderate caliber LPL branch. There is a 50% focal ostial stenosis and otherwise mild diffuse disease.
RCA: Moderate caliber vessel giving rise to an RPDA and 3 RPL branches. There is a 95% calcified mid vessel stenosis and there appears to be severe disease as well in the proximal RPDA as well as the RPAV leading into the RPL branches, however, due
to JOSÉ II flow in the branch vessels, the severity of stenoses cannot be precisely determined. There is noted to be pyah-dj-xeoym retrograde filling of both the RPDA (from LAD septal collaterals) and RPL branches (from distal circumflex
collaterals).
iFR of LAD
An Omni wire was flushed and zeroed outside the body and then advanced to the left main. The wire introducer was removed and the catheter flushed with saline, after which pressure of the wire and guide were normalized. The wire was advanced to the
mid LAD and iFR recorded at 0.92. iFR pullback was performed noting a focal pattern of positivity at the 70% stenosis. On return to the left main, iFR appropriately normalized to ~1.0, confirming lack of wire drift.
iFR of LCx
The wire was re-normalized in the left main and redirected to the proximal circumflex and iFR recorded at 1.0. On return to the left main, iFR appropriately normalized to ~1.0, confirming lack of wire drift.
RADIATION: dose 670 mGy; DAP 37 Gy*cm2; fluoroscopy time 5.6 min
CONCLUSIONS
1. Single-vessel obstructive coronary artery disease and a right dominant system with subtotal occlusion of the mid RCA with [id number]-ebcvx collaterals of the distal branches and IFR negative disease in the LAD and LCx.
2. Moderately elevated LV filling pressure and no aortic stenosis
RECOMMENDATIONS
1. Aggressive secondary prevention of asymptomatic coronary artery disease
Copy to: Dr. Dr. Kayla Mayes MD (pecan sheller); Dr. Christelle Dyson MD (PCP)
Signed: Donta Bell MD, PhD
== END 2024-10-02 17:37 | disposition home or self-care (01) ==
LOC: CATH 09:56
PROVIDERS: ATTENDING PHYSICIAN Student in an Organized Health Care Education/Training Program; FAMILY PHYSICIAN Family Medicine; OTHER PHYSICIAN Internal Medicine Cardiovascular Disease
DX: I25.10 Atherosclerotic heart disease of native coronary artery without angina pectoris (principal); R55 Syncope and collapse; F17.210 Nicotine dependence, cigarettes, uncomplicated; Z79.82 Long term (current) use of aspirin; Z79.899 Other long term (current) drug therapy
CPT/HCPCS: 99152; 99153; 85347; 93458; 93799; C1769; C1894; Q9967